=== PATIENT | female | born 1995 | race American Indian/Alaskan Native ===

== ENCOUNTER 2017-08-15 20:08 | Emergency (ER) | payer OTHER, BC ==
[2017-08-15 21:17] VITALS: BP 124/72
[2017-08-15] MEDS ORDERED: ROBAXIN PO ONE (23:42)
[2017-08-15] MEDS ORDERED: MOTRIN PO ONE (23:42)
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
== END 2017-08-16 00:40 | disposition home or self-care (01) ==
LOC: ED 20:08
DX: S16.1XXA Strain of muscle, fascia and tendon at neck level, initial encounter (principal); Z87.891 Personal history of nicotine dependence; V89.2XXA Person injured in unspecified motor-vehicle accident, traffic, initial encounter; Y93.89 Activity, other specified; Y92.89 Other specified places as the place of occurrence of the external cause; Y99.8 Other external cause status
CPT/HCPCS: 99282

== ENCOUNTER 2018-12-01 19:26 | Inpatient (IN) | payer BC, OTHER ==
[2018-12-01] MEDS ORDERED: MINERAL OIL PO PRN (21:20)
[2018-12-01] MEDS ORDERED: CERVIDIL VG ONE (21:20)
[2018-12-01] MEDS ORDERED: STADOL IV PRN (21:20)
[2018-12-01] MEDS ORDERED: LACTATED RINGERS 1,000 ML IV SCH (22:00)
[2018-12-01] MEDS ORDERED: PITOCin/NS 20 UNIT/1000ML DRIP 20 UNITS/1,000 ML BAG IV SCH (22:00)
--- NOTE | 2018-12-01 22:33 | Ultrasound Report ---
ULTRASOUND OBSTETRIC Indication: post date 40.4wks; BRIAN Findings: There is a single intrauterine . Amniotic fluid index measures 5.9 cm. The heart rate was 1 46 bpm. Signer Name: Beny San MD Signed: 12/01/2018 9:28 PM Workstation Name: [id number]
[2018-12-01 22:50] LABS: Hematocrit 32.7 % (30.3-42.9); Hemoglobin 10.7 gm/dl (10.1-14.3); Mean Corpuscular HGB Conc 33 % (30-34); Mean Corpuscular Volume 75 fl (79-97); Platelet Count 223 K/mm3 (140-440); Red Blood Count 4.37 M/mm3 (3.65-5.03); Red Cell Distribution Width 16.5 % (13.2-15.2)
--- NOTE | 2018-12-01 22:50 | Ultrasound Report ---
US OB BPP wo non-stress INDICATION: post date 40.4wks; BPP. COMPARISON: None available. FINDINGS: The biophysical profile is normal and measures 8 out of 8. heart rate measures 146 bpm. Signer Name: Beny San MD Signed: 12/01/2018 9:46 PM Workstation Name: [id number]
[2018-12-02] MEDS ORDERED: AMBIEN PO PRN (00:21)
[2018-12-02] MEDS ORDERED: ZOFRAN ONE (09:05)
[2018-12-02] MEDS ORDERED: ZOFRAN IV ONE (09:05)
[2018-12-02] MEDS: SUBLIMAZE IV PRN ×2 (09:24→13:02)
--- NOTE | 2018-12-02 10:28 | History and Physical Report ---
History of Present Illness Date of examination: 12/02/18 Date of admission: 12/01/18 21:31 Chief complaint: Presents for postdates induction of labor History of present illness: Early entry to care, co-managed with [facility] due to maternal obesity and size greater than dates. course complicated by mild anemia. Past History Past Medical History: no pertinent history Past Surgical History: no surgical history Family/Genetic History: none Social history: no significant social history, single - Obstetrical History Expected Date of Delivery: 11/27/18 Actual Gestation: 40 Week(s) 5 Day(s) : 1 Medications and Allergies Allergies Allergy/AdvReac Type Severity Reaction Status Date / Time No Known Allergies Allergy Verified 08/15/17 23:44 Home Medications Medication Instructions Recorded Confirmed Last Taken Type Ferrous Sulfate [Feosol 325 MG tab] 1 tab PO QDAY 12/01/18 12/01/18 2 Weeks Ago History ~11/17/18 Vit-Fe Fumar-FA [ 1 tab PO QDAY 12/01/18 12/01/18 1 Week Ago History Vitamin] ~11/24/18 Active Meds: Active Medications Butorphanol Tartrate (Stadol) 1 mg IV Q2H PRN PRN Reason: Pain, Moderate (4-6) Fentanyl (Sublimaze) 100 mcg IV Q2H PRN PRN Reason: Labor Pain Last Admin: 12/02/18 09:24 Dose: 100 mcg Documented by: Oxytocin/Sodium Chloride (Pitocin/Ns 20 Unit/1000ml Drip) 20 units in 1,000 mls @ 125 mls/hr IV DIRECT JEN Lactated Ringer's (Lactated Ringers) 1,000 mls @ 125 mls/hr IV DIRECT JEN Last Infusion: 12/02/18 07:30 Dose: 125 mls/hr Documented by: Mineral Oil (Mineral Oil) 30 ml PO QHS PRN PRN Reason: Constipation Zolpidem Tartrate (Ambien) 5 mg PO QHS PRN PRN Reason: Sleep Last Admin: 12/02/18 01:36 Dose: 5 mg Documented by: Review of Systems All systems: negative - Vital Signs Vital signs: Vital Signs Pulse BP 90 125/72 12/01/18 20:32 12/01/18 20:32 Temp Pulse Resp BP Pulse Ox 98.3 F 77 16 130/85 100 12/02/18 07:30 12/02/18 09:15 12/02/18 07:30 12/02/18 09:15 12/02/18 04:00 - Physical Exam Breasts: Positive: normal Cardiovascular: Regular rate Lungs: Positive: Clear to auscultation, Normal air movement Abdomen: Positive: normal appearance, soft, normal bowel sounds Genitourinary (Female): Positive: normal external genitalia, normal perenium Vagina: Positive: normal moisture Uterus: Positive: enlarged - Obstetrical FHR: category 1 Uterine Contraction Monitor Mode: External Cervical Dilatation: 1 (Vtx, Intact) Cervical Effacement Percentage: 70 station: -3 Uterine Contraction Pattern: Irregular Uterine Tone Measurement Phase: Resting Uterine Contraction Intensity: Mild Results Result Diagrams: 12/01/18 22:24 Abnormal lab results 12/01/18 Range/Units 22:24 MCV 75 L (79-97) fl MCH 25 L (28-32) pg RDW 16.5 H (13.2-15.2) % All other labs normal. Assessment and Plan A: IUP @ 40 5/7 Weeks Category I Tracing Oligo GBS Negative P: Admit to L&D per routine orders Cook's Cervical Ripening Balloon Placed Low- Dose Pitocin
[2018-12-02] MEDS ORDERED: PITOCin/NS 30 UNIT/500ML 30 UNITS/500 ML BAG IV SCH (11:00)
[2018-12-02] MEDS ORDERED: PEPCID IV PRN (11:39)
--- NOTE | 2018-12-02 12:32 | Progress Note ---
Assessment and Plan A: IUP @ 40 5/7 Weeks Category I Tracing Oligo GBS Negative P: Cook's Balloon removed AROM Continue Pitocin Augmentation Subjective - Subjective Date of service: 12/02/18 Interval history: Early entry to care, co-managed with [facility] due to maternal obesity and size greater than dates. course complicated by mild anemia. Patient reports: movement normal, contractions Objective - Vital Signs Vital Signs: Vital Signs - 12hr 12/02/18 12/02/18 12/02/18 01:08 02:09 03:09 Temperature Pulse Rate 73 91 H 79 Respiratory Rate Blood Pressure 127/76 143/85 118/67 Blood Pressure [Right] O2 Sat by Pulse Oximetry 12/02/18 12/02/18 12/02/18 04:00 04:09 05:12 Temperature 98 F Pulse Rate 82 82 80 Respiratory 18 Rate Blood Pressure 126/85 133/85 Blood Pressure 125/85 [Right] O2 Sat by Pulse 100 Oximetry 12/02/18 12/02/18 12/02/18 06:11 07:08 07:30 Temperature 98.3 F Pulse Rate 79 85 Respiratory 16 Rate Blood Pressure 118/78 137/94 Blood Pressure [Right] O2 Sat by Pulse Oximetry 12/02/18 12/02/18 12/02/18 07:36 07:49 08:10 Temperature Pulse Rate 83 85 81 Respiratory Rate Blood Pressure 140/93 144/89 129/72 Blood Pressure [Right] O2 Sat by Pulse Oximetry 12/02/18 12/02/18 12/02/18 09:15 10:23 11:08 Temperature Pulse Rate 77 77 Respiratory Rate Blood Pressure 130/85 121/94 137/85 Blood Pressure [Right] O2 Sat by Pulse Oximetry 12/02/18 12/02/18 12/02/18 11:11 11:16 11:17 Temperature 99.1 F Pulse Rate 86 79 Respiratory 16 Rate Blood Pressure Blood Pressure [Right] O2 Sat by Pulse 100 96 Oximetry 12/02/18 12/02/18 12/02/18 11:21 11:24 11:26 Temperature Pulse Rate 82 87 90 Respiratory Rate Blood Pressure Blood Pressure [Right] O2 Sat by Pulse 98 94 98 Oximetry 12/02/18 12/02/18 12/02/18 11:31 11:36 11:37 Temperature Pulse Rate 102 H 94 H 79 Respiratory Rate Blood Pressure Blood Pressure [Right] O2 Sat by Pulse 99 96 94 Oximetry 12/02/18 12/02/18 12/02/18 11:41 11:46 11:51 Temperature Pulse Rate 90 87 80 Respiratory Rate Blood Pressure Blood Pressure [Right] O2 Sat by Pulse 96 96 95 Oximetry 12/02/18 12/02/18 12/02/18 11:56 12:01 12:06 Temperature Pulse Rate 81 97 H 78 Respiratory Rate Blood Pressure Blood Pressure [Right] O2 Sat by Pulse 95 98 97 Oximetry 12/02/18 12/02/18 12/02/18 12:08 12:11 12:12 Temperature Pulse Rate 72 101 H 79 Respiratory Rate Blood Pressure 137/89 Blood Pressure [Right] O2 Sat by Pulse 97 94 Oximetry 12/02/18 12/02/18 12/02/18 12:16 12:21 12:26 Temperature Pulse Rate 88 92 H 92 H Respiratory Rate Blood Pressure Blood Pressure [Right] O2 Sat by Pulse 98 98 96 Oximetry - Exam Breasts: normal Cardiovascular: Regular rate Lungs: Clear to auscultation, Normal air movement Abdomen: Present: normal appearance, soft, normal bowel sounds Uterus: Present: normal, firm, fundal height above umbilicus FHR: category 1 Uterine Contraction Monitor Mode: External Cervical Dilatation: 5 (AROM of a small amount of clear fluid at 1225) Cervical Effacement Percentage: 70 station: -2 Uterine Contraction Pattern: Irregular Uterine Tone Measurement Phase: Resting Uterine Contraction Intensity: Moderate Extremities: normal - Labs Labs: Abnormal Labs 12/01/18 22:24 MCV 75 L MCH 25 L RDW 16.5 H Laboratory Results - last 24 hr 12/01/18 12/01/18 12/01/18 22:24 22:24 22:29 WBC 7.1 RBC 4.37 Hgb 10.7 Hct 32.7 MCV 75 L MCH 25 L MCHC 33 RDW 16.5 H Plt Count 223 RPR Nonreactive Blood Type A POSITIVE Antibody Screen Negative
[2018-12-02] MEDS ORDERED: NARCAN 2 MG/2 ML IV PRN (17:03)
--- NOTE | 2018-12-02 17:04 | Anesthesia Consultation ---
Anesthesia Consult and Med Hx Date of service: 12/02/18 - Airway Anesthetic Teeth Evaluation: Good ROM Head & Neck: Adequate Mental/Hyoid Distance: Adequate Mallampati Class: Class I Intubation Access Assessment: Good - Pulmonary Exam CTA: Yes - Cardiac Exam Cardiac Exam: RRR - Pre-Operative Health Status ASA Pre-Surgery Classification: ASA2 Proposed Anesthetic Plan: Epidural - Pulmonary Hx Asthma: No COPD: No Hx Pneumonia: No - Cardiovascular System Hx Hypertension: No - Central Nervous System Hx Seizures: No Hx Psychiatric Problems: No - Endocrine Hx Renal Disease: No Hx End Stage Renal Disease: No Hx Hypothyroidism: No Hx Hyperthyroidism: No - Hematic Hx Anemia: Yes Hx Sickle Cell Disease: No (sickle cell trait) - Other Systems Hx Alcohol Use: No
--- NOTE | 2018-12-02 17:05 | Anesthesia Day of Surgery ---
Anesthesia Day of Surgery - Day of Surgery Patient Examined: Yes Patient H&P Reviewed: Yes Patient is NPO: No
[2018-12-02] MEDS ORDERED: fentaNYL-BUPIV 2 MCG/ML-0.125% 200 MCG/100 ML BAG EPIDURAL SCH (18:00)
--- NOTE | 2018-12-02 18:41 | Progress Note ---
Assessment and Plan A: IUP @ 40 5/7 Weeks Category II Tracing Oligo GBS Negative P: Pitocin Discontinued x 40 mins Internals X [address] Garcia due to Category II Tracing Subjective - Subjective Date of service: 12/02/18 Interval history: Early entry to care, co-managed with [facility] due to maternal obesity and size greater than dates. course complicated by mild anemia. Patient reports: movement normal, other (Resting well under epidural anesthesia) Objective - Vital Signs Vital Signs: Vital Signs - 12hr 12/02/18 12/02/18 12/02/18 07:08 07:30 07:36 Temperature 98.3 F Pulse Rate 85 83 Respiratory 16 Rate Blood Pressure 137/94 140/93 O2 Sat by Pulse Oximetry 12/02/18 12/02/18 12/02/18 07:49 08:10 09:15 Temperature Pulse Rate 85 81 77 Respiratory Rate Blood Pressure 144/89 129/72 130/85 O2 Sat by Pulse Oximetry 12/02/18 12/02/18 12/02/18 10:23 11:08 11:11 Temperature Pulse Rate 77 86 Respiratory Rate Blood Pressure 121/94 137/85 O2 Sat by Pulse 100 Oximetry 12/02/18 12/02/18 12/02/18 11:16 11:17 11:21 Temperature 99.1 F Pulse Rate 79 82 Respiratory 16 Rate Blood Pressure O2 Sat by Pulse 96 98 Oximetry 12/02/18 12/02/18 12/02/18 11:24 11:26 11:31 Temperature Pulse Rate 87 90 102 H Respiratory Rate Blood Pressure O2 Sat by Pulse 94 98 99 Oximetry 12/02/18 12/02/18 12/02/18 11:36 11:37 11:41 Temperature Pulse Rate 94 H 79 90 Respiratory Rate Blood Pressure O2 Sat by Pulse 96 94 96 Oximetry 12/02/18 12/02/18 12/02/18 11:46 11:51 11:56 Temperature Pulse Rate 87 80 81 Respiratory Rate Blood Pressure O2 Sat by Pulse 96 95 95 Oximetry 12/02/18 12/02/18 12/02/18 12:01 12:06 12:08 Temperature Pulse Rate 97 H 78 72 Respiratory Rate Blood Pressure 137/89 O2 Sat by Pulse 98 97 Oximetry 12/02/18 12/02/18 12/02/18 12:11 12:12 12:16 Temperature Pulse Rate 101 H 79 88 Respiratory Rate Blood Pressure O2 Sat by Pulse 97 94 98 Oximetry 12/02/18 12/02/18 12/02/18 12:21 12:26 12:29 Temperature Pulse Rate 92 H 92 H 74 Respiratory Rate Blood Pressure O2 Sat by Pulse 98 96 94 Oximetry 12/02/18 12/02/18 12/02/18 12:31 12:36 12:41 Temperature Pulse Rate 80 97 H 104 H Respiratory Rate Blood Pressure O2 Sat by Pulse 95 96 97 Oximetry 12/02/18 12/02/18 12/02/18 12:46 12:51 12:56 Temperature Pulse Rate 80 85 74 Respiratory Rate Blood Pressure O2 Sat by Pulse 96 98 97 Oximetry 12/02/18 12/02/18 12/02/18 13:01 13:06 13:10 Temperature Pulse Rate 77 82 74 Respiratory Rate Blood Pressure 136/84 O2 Sat by Pulse 95 96 Oximetry 12/02/18 12/02/18 12/02/18 13:11 13:16 13:21 Temperature Pulse Rate 89 100 H 73 Respiratory Rate Blood Pressure O2 Sat by Pulse 98 98 97 Oximetry 12/02/18 12/02/18 12/02/18 13:26 13:31 13:36 Temperature Pulse Rate 75 95 H 71 Respiratory Rate Blood Pressure O2 Sat by Pulse 98 98 96 Oximetry 12/02/18 12/02/18 12/02/18 13:41 13:52 13:57 Temperature Pulse Rate 75 90 71 Respiratory Rate Blood Pressure O2 Sat by Pulse 97 99 98 Oximetry 12/02/18 12/02/18 12/02/18 14:02 14:07 14:09 Temperature Pulse Rate 68 87 71 Respiratory Rate Blood Pressure 139/88 O2 Sat by Pulse 97 97 Oximetry 12/02/18 12/02/18 12/02/18 14:12 14:17 14:22 Temperature Pulse Rate 67 75 80 Respiratory Rate Blood Pressure O2 Sat by Pulse 98 98 98 Oximetry 12/02/18 12/02/18 12/02/18 14:27 14:31 14:32 Temperature Pulse Rate 68 68 99 H Respiratory Rate Blood Pressure O2 Sat by Pulse 97 94 96 Oximetry 12/02/18 12/02/18 12/02/18 14:37 14:42 14:47 Temperature Pulse Rate 72 101 H 71 Respiratory Rate Blood Pressure O2 Sat by Pulse 98 98 97 Oximetry 12/02/18 12/02/18 12/02/18 14:52 14:54 14:57 Temperature Pulse Rate 79 70 69 Respiratory Rate Blood Pressure O2 Sat by Pulse 100 94 99 Oximetry 12/02/18 12/02/18 12/02/18 15:02 15:07 15:09 Temperature Pulse Rate 82 78 72 Respiratory Rate Blood Pressure 147/96 O2 Sat by Pulse 99 99 Oximetry 12/02/18 12/02/18 12/02/18 15:12 15:17 15:22 Temperature Pulse Rate 79 100 H 92 H Respiratory Rate Blood Pressure O2 Sat by Pulse 98 100 100 Oximetry 12/02/18 12/02/18 12/02/18 15:27 15:32 15:37 Temperature Pulse Rate 72 76 116 H Respiratory Rate Blood Pressure O2 Sat by Pulse 100 99 100 Oximetry 12/02/18 12/02/18 12/02/18 15:49 15:54 15:59 Temperature Pulse Rate 91 H 98 H 81 Respiratory Rate Blood Pressure 148/98 O2 Sat by Pulse 100 99 100 Oximetry 12/02/18 12/02/18 12/02/18 16:00 16:04 16:06 Temperature 97.8 F Pulse Rate 83 101 H Respiratory 16 Rate Blood Pressure O2 Sat by Pulse 100 92 Oximetry 12/02/18 12/02/18 12/02/18 16:08 16:09 16:14 Temperature Pulse Rate 80 77 69 Respiratory Rate Blood Pressure 137/92 O2 Sat by Pulse 100 98 Oximetry 12/02/18 12/02/18 12/02/18 16:19 16:24 16:29 Temperature Pulse Rate 84 98 H 69 Respiratory Rate Blood Pressure O2 Sat by Pulse 100 99 100 Oximetry 12/02/18 12/02/18 12/02/18 16:34 16:39 16:44 Temperature Pulse Rate 86 75 92 H Respiratory Rate Blood Pressure O2 Sat by Pulse 97 98 98 Oximetry 12/02/18 12/02/18 12/02/18 16:49 16:54 16:59 Temperature Pulse Rate 82 73 93 H Respiratory Rate Blood Pressure O2 Sat by Pulse 100 100 99 Oximetry 12/02/18 12/02/18 12/02/18 17:04 17:08 17:09 Temperature Pulse Rate 80 51 L 91 H Respiratory Rate Blood Pressure O2 Sat by Pulse 100 93 98 Oximetry 12/02/18 12/02/18 12/02/18 17:14 17:19 17:21 Temperature Pulse Rate 94 H 84 90 Respiratory Rate Blood Pressure 137/80 O2 Sat by Pulse 94 99 Oximetry 12/02/18 12/02/18 12/02/18 17:23 17:24 17:25 Temperature Pulse Rate 100 H 80 94 H Respiratory Rate Blood Pressure 134/83 139/81 O2 Sat by Pulse 99 Oximetry 12/02/18 12/02/18 12/02/18 17:27 17:29 17:31 Temperature Pulse Rate 88 86 94 H Respiratory Rate Blood Pressure 135/80 132/75 133/85 O2 Sat by Pulse 99 Oximetry 12/02/18 12/02/18 12/02/18 17:33 17:34 17:35 Temperature Pulse Rate 77 78 95 H Respiratory Rate Blood Pressure 137/85 124/71 O2 Sat by Pulse 100 Oximetry 12/02/18 12/02/18 12/02/18 17:37 17:39 17:44 Temperature Pulse Rate 77 73 82 Respiratory Rate Blood Pressure 109/55 O2 Sat by Pulse 100 100 Oximetry 12/02/18 12/02/18 12/02/18 17:49 17:53 17:54 Temperature Pulse Rate 74 81 69 Respiratory Rate Blood Pressure 112/61 O2 Sat by Pulse 100 100 Oximetry 12/02/18 12/02/18 12/02/18 17:59 18:03 18:04 Temperature Pulse Rate 92 H 76 81 Respiratory Rate Blood Pressure 108/57 O2 Sat by Pulse 100 100 Oximetry 12/02/18 12/02/18 12/02/18 18:08 18:09 18:14 Temperature Pulse Rate 71 79 77 Respiratory Rate Blood Pressure 136/86 O2 Sat by Pulse 100 100 Oximetry 12/02/18 12/02/18 12/02/18 18:19 18:23 18:24 Temperature Pulse Rate 79 78 78 Respiratory Rate Blood Pressure 149/93 O2 Sat by Pulse 100 100 Oximetry 12/02/18 12/02/18 18:29 18:34 Temperature Pulse Rate 81 83 Respiratory Rate Blood Pressure O2 Sat by Pulse 100 100 Oximetry - Exam Breasts: normal Cardiovascular: Regular rate Lungs: Clear to auscultation, Normal air movement Abdomen: Present: normal appearance, soft, normal bowel sounds Uterus: Present: normal, firm, fundal height above umbilicus FHR: category 2 FHR comments: FHR: 126, moderate varability, -accels, +repetitive early decels Cervical Dilatation: 7 Cervical Effacement Percentage: 70 station: -2 Uterine Contraction Frequency (min): 1-2 Uterine Contraction Pattern: Regular Uterine Tone Measurement Phase: Resting Uterine Contraction Intensity: Moderate Extremities: normal - Labs Labs: Abnormal Labs 12/01/18 22:24 MCV 75 L MCH 25 L RDW 16.5 H Laboratory Results - last 24 hr 12/01/18 12/01/18 12/01/18 22:24 22:24 22:29 WBC 7.1 RBC 4.37 Hgb 10.7 Hct 32.7 MCV 75 L MCH 25 L MCHC 33 RDW 16.5 H Plt Count 223 RPR Nonreactive Blood Type A POSITIVE Antibody Screen Negative
[2018-12-02] MEDS ORDERED: NACL 0.9% 1000 ML 1,000 ML VG SCH (19:00)
[2018-12-02] MEDS ORDERED: BICITRA PO ONE (19:08)
[2018-12-02] MEDS ORDERED: PEPCID IV ONE (19:08)
[2018-12-02] MEDS ORDERED: REGLAN IV ONE (19:08)
[2018-12-02] MEDS ORDERED: REGLAN ONE (19:12)
[2018-12-02] MEDS ORDERED: BICITRA ONE (19:12)
[2018-12-02] MEDS ORDERED: ANCEF/STERILE WATER 2 GM/20 ML IV ONE (19:15)
[2018-12-02] MEDS ORDERED: WATER FOR IRRIG STERILE IR ONE (19:20)
[2018-12-02] MEDS ORDERED: NACL 0.9% IR ONE (19:20)
[2018-12-02] MEDS ORDERED: ANCEF/STERILE WATER 2 GM/20 ML 2 GM/20 ML SYRINGE IV NR (20:00)
[2018-12-02] MEDS ORDERED: PITOCin/NS 20 UNIT/1000ML DRIP 20 UNITS/1,000 ML BAG IV SCH ×2 (20:00→21:00)
[2018-12-02] MEDS ORDERED: LACTATED RINGERS 1,000 ML IV SCH (20:00)
--- NOTE | 2018-12-02 20:01 | Operative Report ---
Operative Report Operative Report: Date of procedure: 12/02/2018 Pre-operative diagnosis: 1. Intrauterine brings a 40-5/7 weeks in labor 2. Oligohydramnios 3. Non-reassuring surveillance Post-operative diagnosis: Same Procedure name(s): Primary low transverse section Surgeon: Delmar Fenton MD Decorating Equipment Setter: None Anesthesia: Epidural anesthesia by Gaudencio Frederick CRNA EBL: 500 mL Findings: A 4090 g male Apgars 8 at 1 minute and 9 at 5 minutes. Clear amniotic fluid. Nuchal cord 1. Normal uterus. Normal tubes and ovaries bilaterally. Procedure: After the patient was prepped and draped in usual sterile fashion, and after satisfactory level of epidural anesthesia was obtained, the skin knife was used to make a transverse skin incision. The incision was excised down to layer of the fascia, which was nicked in the midline and extended laterally using the Bovie cautery. The rectus muscles were dissected off the rectus fascia both superiorly and inferiorly. The rectus bellies in the midline, and the peritoneum was entered under direct visualization. The peritoneal incision was extended superiorly and inferiorly. A bladder flap was created and the bladder blade was then placed. The uterus was scored in a curvilinear linear fashion, entered in the midline revealing clear amniotic fluid. The infant's head was delivered onto the surgical field, nuchal cord 1 reduced and the oropharynx and nasopharynx were bulb suctioned. The rest of the 's body was delivered, cord was doubly clamped and cut and the was handed to the waiting respiratory team. The placenta was manually removed from the uterus, and the uterus removed from its normal anatomical position. After gentle uterine lavage, the incision was inspected and found to be without extensions. It was then closed in 2 layers using 0 Vicryl suture in a running interlocking fashion, the second layer imbricating the first. After good hemostasis was achieved, copious amounts or irrigation was performed, and the gutters were suctioned free of blood and blood clots. Tisseel sealant was sprayed across the uterine incision. The uterus was then returned to its normal anatomical position, and after excellent hemostasis assured, the peritoneum was re-approximated using 3-0 Vicryl suture in a running interlocking fashion, and then the rectus muscles were re-approximated using 3-0 Vicryl suture in a [id number] configuration. The fascia was then re-approximated using 0 Vicryl suture in running interlocking fashion. The subcutaneous layer was made hemostatic using Bovie cautery, the Tisseel sealant was sprayed across the fascial incision and the skin edges re-approximated using 4-0 Vicryl suture in a sub-cuticular fashion. Patient tolerated the procedure well was transported to recovery in stable condition.
[2018-12-02] MEDS ORDERED: TYLENOL PO PRN (20:04)
[2018-12-02] MEDS ORDERED: LANSINOH TP PRN (20:04)
[2018-12-02] MEDS ORDERED: IBUPROFEN PO PRN (20:04)
[2018-12-02] MEDS ORDERED: MYLICON PO PRN (20:04)
[2018-12-02] MEDS ORDERED: NARCAN 0.4 MG/1 ML IV PRN ×2 (20:04→20:25)
[2018-12-02] MEDS ORDERED: TUCKS PAD TP PRN (20:04)
[2018-12-02] MEDS ORDERED: NORCO 5/325 PO PRN (20:04)
[2018-12-02] MEDS ORDERED: SODIUM BICARBONATE IV ONE (20:21)
[2018-12-02] MEDS ORDERED: XYLOCAINE MPF 2% ONE (20:21)
[2018-12-02] MEDS ORDERED: DILAUDID IV PRN (20:25)
[2018-12-02] MEDS ORDERED: ZOFRAN IV PRN (20:25)
[2018-12-02] MEDS ORDERED: PHENERGAN PR PRN (20:25)
[2018-12-02] MEDS ORDERED: PHENERGAN PO PRN (20:25)
[2018-12-02] MEDS ORDERED: NUBAIN IV PRN (20:26)
[2018-12-02] MEDS ORDERED: PITOCin/NS 20 UNIT/1000ML DRIP 20,000 MILLIUNITS/1,000 ML BAG IV ONE (20:30)
[2018-12-02] MEDS ORDERED: D5LR 1,000 ML IV SCH (21:00)
[2018-12-02] MEDS: DILAUDID IV PRN ×2 (21:00→21:08)
[2018-12-02] MEDS ORDERED: SODIUM CHLORIDE FLUSH SYRINGE 10 ML IV NR ×2 (21:00)
[2018-12-02] MEDS: TORADOL IV PRN (21:00)
[2018-12-02] MEDS ORDERED: SENOKOT PO PRN (22:00)
[2018-12-03] MEDS: DILAUDID IV PRN
[2018-12-03] MEDS: ANCEF/NS 1 GM/50 ML 1 GM/50 ML BAG IV SCH ×2 (03:22→13:44)
[2018-12-03] MEDS ORDERED: BOOSTRIX IM ONE (06:00)
[2018-12-03] MEDS: TORADOL IV PRN ×3 (07:10→19:55)
[2018-12-03 09:26] LABS: Hematocrit 27.5 % (30.3-42.9); Hemoglobin 9.3 gm/dl (10.1-14.3)
[2018-12-03] MEDS ORDERED: M-M-R II VACCINE SUB-Q ONE (10:00)
--- NOTE | 2018-12-03 10:07 | Progress Note ---
Assessment and Plan A: /postop day 1 S/P primary low transverse section. Anemia secondary to and blood loss. P: Ambulate today. Advance diet as tolerated. Remove Yee. Oral iron supplementation. Subjective - Subjective Date of service: 12/03/18 Principal diagnosis: /postop day 1 S/P primary low transverse section Interval history: /postop day 1 S/P primary low transverse section. Doing well. Patient still has Yee. Has not been up to ambulate yet. No flatus yet. Has been drinking water without nausea or vomiting. Reports small amount of lochia. Patient denies headache, cough, shortness of breath, chest pain, dizziness, leg pain, or heavy vaginal bleeding. Patient reports: appetite normal, pain well controlled, no flatus, no nauseated [place]: doing well Objective - Vital Signs Latest vital signs: Vital Signs Temp Pulse Resp BP Pulse Ox 12/03/18 08:16 98.1 F 80 16 119/71 94 12/03/18 07:10 18 12/03/18 05:26 18 12/03/18 02:55 98.2 F 75 20 128/86 93 12/03/18 00:00 18 12/02/18 23:17 114 H 100 12/02/18 21:58 98.2 F 76 20 129/80 98 12/02/18 20:50 97.7 F 12/02/18 20:15 97.8 F 12/02/18 19:02 91 H 100 12/02/18 18:57 81 100 12/02/18 18:53 74 114/61 12/02/18 18:52 77 100 12/02/18 18:39 98 H 144/91 100 12/02/18 18:34 83 100 12/02/18 18:29 81 100 12/02/18 18:24 78 100 12/02/18 18:23 78 149/93 12/02/18 18:19 79 100 12/02/18 18:14 77 100 12/02/18 18:09 79 100 12/02/18 18:08 71 136/86 12/02/18 18:04 81 100 12/02/18 18:03 76 108/57 12/02/18 17:59 92 H 100 12/02/18 17:54 69 100 12/02/18 17:53 81 112/61 07/03/19 17:49 74 100 12/02/18 17:44 82 100 12/02/18 17:39 73 100 12/02/18 17:37 77 109/55 12/02/18 17:35 95 H 124/71 12/02/18 17:34 78 100 12/02/18 17:33 77 137/85 12/02/18 17:31 94 H 133/85 12/02/18 17:29 86 132/75 99 12/02/18 17:27 88 135/80 12/02/18 17:25 94 H 139/81 12/02/18 17:24 80 99 12/02/18 17:23 100 H 134/83 12/02/18 17:21 90 137/80 12/02/18 17:19 84 99 12/02/18 17:14 94 H 94 12/02/18 17:09 91 H 98 12/02/18 17:08 51 L 93 12/02/18 17:04 80 100 12/02/18 16:59 93 H 99 12/02/18 16:54 73 100 12/02/18 16:49 82 100 12/02/18 16:44 92 H 98 12/02/18 16:39 75 98 12/02/18 16:34 86 97 12/02/18 16:29 69 100 12/02/18 16:24 98 H 99 12/02/18 16:19 84 100 12/02/18 16:14 69 98 12/02/18 16:09 77 100 12/02/18 16:08 80 137/92 12/02/18 16:06 101 H 92 12/02/18 16:04 83 100 12/02/18 16:00 97.8 F 16 12/02/18 15:59 81 100 12/02/18 15:54 98 H 148/98 99 12/02/18 15:49 91 H 100 12/02/18 15:37 116 H 100 12/02/18 15:32 76 99 12/02/18 15:27 72 100 12/02/18 15:22 92 H 100 12/02/18 15:17 100 H 100 12/02/18 15:12 79 98 12/02/18 15:09 72 147/96 12/02/18 15:07 78 99 12/02/18 15:02 82 99 12/02/18 14:57 69 99 12/02/18 14:54 70 94 12/02/18 14:52 79 100 12/02/18 14:47 71 97 12/02/18 14:42 101 H 98 12/02/18 14:37 72 98 12/02/18 14:32 99 H 96 12/02/18 14:31 68 94 12/02/18 14:27 68 97 12/02/18 14:22 80 98 12/02/18 14:17 75 98 12/02/18 14:12 67 98 12/02/18 14:09 71 139/88 12/02/18 14:07 87 97 12/02/18 14:02 68 97 12/02/18 13:57 71 98 12/02/18 13:52 90 99 12/02/18 13:41 75 97 12/02/18 13:36 71 96 12/02/18 13:31 95 H 98 12/02/18 13:26 75 98 12/02/18 13:21 73 97 12/02/18 13:16 100 H 98 12/02/18 13:11 89 98 12/02/18 13:10 74 136/84 12/02/18 13:06 82 96 12/02/18 13:01 77 95 12/02/18 12:56 74 97 12/02/18 12:51 85 98 12/02/18 12:46 80 96 12/02/18 12:41 104 H 97 12/02/18 12:36 97 H 96 12/02/18 12:31 80 95 12/02/18 12:29 74 94 12/02/18 12:26 92 H 96 12/02/18 12:21 92 H 98 12/02/18 12:16 88 98 12/02/18 12:12 79 94 12/02/18 12:11 101 H 97 12/02/18 12:08 72 137/89 12/02/18 12:06 78 97 12/02/18 12:01 97 H 98 12/02/18 11:56 81 95 12/02/18 11:51 80 95 12/02/18 11:46 87 96 12/02/18 11:41 90 96 12/02/18 11:37 79 94 12/02/18 11:36 94 H 96 12/02/18 11:31 102 H 99 12/02/18 11:26 90 98 12/02/18 11:24 87 94 12/02/18 11:21 82 98 12/02/18 11:17 99.1 F 16 12/02/18 11:16 79 96 12/02/18 11:11 86 100 12/02/18 11:08 77 137/85 12/02/18 10:23 121/94 Intake and Output 12/02/18 12/03/18 12/03/18 23:59 07:59 15:59 Intake Total 240 0 Output Total 1100 600 Balance -1100 -360 0 Intake: Oral 240 0 Output: Urine 1100 600 Indwelling Catheter 600 600 Uretheral (Yee) 500 Other: Total, Intake Amount 240 0 Total, Output Amount 600 600 Estimated Blood Loss 500 - Exam Cardiovascular: Present: Regular rate, Normal S1, Normal S2 Lungs: Present: Clear to auscultation Abdomen: Present: normal appearance, soft, normal bowel sounds. Absent: distention, tenderness, guarding, rigidity Uterus: Present: normal, firm, fundal height below umbilicus. Absent: bogginess, tenderness Extremities: Present: normal. Absent: tenderness, edema Incision: Present: normal, dry, intact, dressed - Labs Labs: Abnormal lab results 12/03/18 Range/Units 08:42 Hgb 9.3 L (10.1-14.3) gm/dl Hct 27.5 L (30.3-42.9) %
[2018-12-03] MEDS: PRENATAL VITAMIN PO SCH (10:48)
[2018-12-03] MEDS: FEOSOL PO SCH (10:48)
[2018-12-03] MEDS: TORADOL IV SCH (20:03)
[2018-12-03] MEDS: TYLENOL PO SCH (21:15)
[2018-12-04] MEDS: TORADOL IV SCH ×4 (02:03→18:00)
[2018-12-04] MEDS: TYLENOL PO SCH ×3 (04:37→15:00)
--- NOTE | 2018-12-04 09:34 | Progress Note ---
Assessment and Plan - Patient Problems (1) S/P primary low transverse Current Visit: Yes Status: Acute Plan to address problem: POD 2 - stable Continue routine postop orders Ambulation, abdominal binder encouraged, as tolerated Anticipate discharge in 24 hours (2) Anemia due to blood loss, acute Current Visit: Yes Status: Acute Plan to address problem: Asymptomatic Continue iron therapy (ferrous sulfate 325mg PO daily) Subjective - Subjective Date of service: 12/04/18 Principal diagnosis: POD #2; s/p Primary LTCS Interval history: see H&P, OB Progress Notes, Operative Report and PP/RESPITE COORDINATOR Progress Note Patient reports: appetite normal, voiding normally, pain well controlled, flatus, ambulating normally, no dizzy ambulation, no bowel movement : doing well, other (breast and bottle feeding) Objective - Vital Signs Latest vital signs: Vital Signs Temp Pulse Resp BP Pulse Ox 12/04/18 07:45 99.2 F 86 20 128/79 92 12/04/18 00:00 98.4 F 82 20 130/84 96 12/03/18 20:21 98.2 F 84 20 121/74 94 12/03/18 15:52 97.9 F 83 18 116/68 94 12/03/18 12:06 97.5 F L 82 18 123/87 95 Intake and Output 12/03/18 12/04/18 12/04/18 23:59 07:59 15:59 Intake Total 780 480 Balance 780 480 Intake: Oral 780 480 Other: Total, Intake Amount 780 480 # Voids Indwelling Catheter 1 1 # Bowel Movements 0 - Exam Cardiovascular: Present: Regular rate Lungs: Present: Clear to auscultation Abdomen: Present: normal appearance, soft Vulva: both: normal Uterus: Present: normal, firm, fundal height at umbilicus Extremities: Present: normal Incision: Present: normal, dry, intact, dressed Comments: scant lochia - Labs Labs: Abnormal lab results 12/03/18 Range/Units 08:42 Hgb 9.3 L (10.1-14.3) gm/dl Hct 27.5 L (30.3-42.9) %
[2018-12-04] MEDS: MILK OF MAGNESIA PO PRN (10:00)
[2018-12-04] MEDS: PRENATAL VITAMIN PO SCH (10:01)
[2018-12-04] MEDS: FEOSOL PO SCH (10:01)
[2018-12-04] MEDS: PERCOCET 5/325 PO PRN ×2 (10:17→17:48)
[2018-12-04] MEDS: SENOKOT PO SCH ×2 (10:18→22:19)
[2018-12-05] MEDS: PERCOCET 5/325 PO PRN ×2 (05:57→14:20)
[2018-12-05] MEDS: MILK OF MAGNESIA PO PRN (05:57)
[2018-12-05] MEDS: PRENATAL VITAMIN PO SCH (10:31)
[2018-12-05] MEDS: SENOKOT PO SCH (10:31)
[2018-12-05] MEDS: FEOSOL PO SCH (10:31)
--- NOTE | 2018-12-05 12:44 | Progress Note ---
Assessment and Plan A: /postop day 3 S/P primary low transverse section. Anemia secondary to and blood loss. P: Discharge patient home today when baby is able to go. discharge instructions and warning signs discussed with patient. Advised patient re: care of incision and activity restrictions. Advised patient to avoid lifting, intercourse, driving, and housework. Advised patient to continue taking her vitamins and iron supplements at home. Advised patient to call the office and obtain a follow up appointment in 1 week for an incision check. Patient voiced understanding of all instructions. Subjective - Subjective Date of service: 12/05/18 Principal diagnosis: POD #3; s/p Primary LTCS Interval history: /postop day 3 S/P primary low transverse section. Doing well. Patient desires discharge home today. Patient reports a small amount of lochia. Patient is voiding without difficulty, ambulating well, tolerating a regular diet without nausea or vomiting, and passing gas. Patient denies headache, cough, chest pain, shortness of breath, leg pain, abdominal pain, or heavy bleeding. Patient reports: appetite normal, voiding normally, pain well controlled, ambulating normally, no dizzy ambulation, no flatus, no nauseated : doing well, bottle feeding Objective - Vital Signs Latest vital signs: Vital Signs Temp Pulse Resp BP BP Pulse Ox 12/05/18 07:26 98.0 F 70 18 118/74 12/05/18 00:16 97.5 F L 66 18 126/79 97 12/04/18 19:20 98.6 F 89 18 136/77 95 12/04/18 16:45 98.2 F 83 20 125/86 94 Intake and Output 12/04/18 12/05/18 12/05/18 23:59 07:59 15:59 Intake Total 1000 480 Balance 1000 480 Intake: Oral 1000 480 Other: Total, Intake Amount 1000 480 # Voids Indwelling Catheter 4 - Exam Cardiovascular: Present: Regular rate, Normal S1, Normal S2, No murmurs Lungs: Present: Clear to auscultation Abdomen: Present: normal appearance, soft, normal bowel sounds. Absent: distention, tenderness, guarding, rigidity Uterus: Present: normal, firm, fundal height below umbilicus. Absent: bogginess, tenderness Extremities: Present: normal. Absent: tenderness Incision: Present: normal, dry, intact
--- NOTE | 2018-12-05 12:57 | Discharge Summary ---
Providers - Providers Date of Admission: 12/01/18 21:31 Date of discharge: 12/05/18 Attending physician: MARIA GUADALUPE CASTILLO MD Primary care physician: MARIA GUDAALUPE CASTILLO MD Hospitalization Reason for admission: induction of labor Delivery: Procedure: primary low transverse Incision: normal, dry, intact Other procedures: none complications: none Discharge diagnosis: IUP at term delivered [place] baby: male Pertinent studies: Labs Hospital course: Normal hospital course Condition at discharge: Good Disposition: DC-01 TO HOME OR SELFCARE - Discharge Diagnoses (1) Term delivered Status: Acute (2) Anemia due to blood loss Status: Acute Plan - Discharge Medications Prescriptions: Ferrous Sulfate [Feosol 325 MG tab] 1 tab PO QDAY #30 tablet Ibuprofen [Motrin] 800 mg PO Q8HR PRN #30 tablet PRN Reason: Pain, Mild (1-3) HYDROcodone/APAP 5-325 [[place] 5/325] 1 each PO Q6HR PRN #30 tablet PRN Reason: Pain Vit-Fe Fumar-FA [ Vitamin] 1 tab PO QDAY #30 tablet - Provider Discharge Summary Activity: routine, no sex for 6 weeks, no heavy lifting 4 weeks, no strenuous exercise Diet: routine Instructions: routine Additional instructions: Please continue taking your vitamin and iron supplements at home. Call your doctor immediately for: * Fever > 100.5 * Heavy vaginal bleeding ( >1 pad per hour) * Severe persistent headache * Shortness of breath * Reddened, hot, painful area to leg or breast * Drainage or odor from incision. * Keep incision clean and dry at all times and follow doctor's instructions regarding bathing/showering - Follow up plan Follow up: MARIA GUADALUPE CASTILLO MD [Primary Care Provider] - 7 Days
[2018-12-05 15:03] VITALS: BP 119/82
== END 2018-12-05 15:20 | disposition home or self-care (01) | DRG 787 ==
LOC: TRG 19:26 → LD 21:31 → OB 12-02 22:31
PROVIDERS: ADMIT Obstetrics & Gynecology; ATTEND Obstetrics & Gynecology
PROC: 0U7C7ZZ Dilation of Cervix, Via Natural or Artificial Opening (ICD-10-PCS; 2018-12-01)
PROC: 10D00Z1 Extraction of Products of Conception, Low, Open Approach (ICD-10-PCS; principal; 2018-12-02)
PROC: 10H07YZ Insertion of Other Device into Products of Conception, Via Natural or Artificial Opening (ICD-10-PCS; 2018-12-02)
PROC: 3E0E7GC Introduction of Other Therapeutic Substance into Products of Conception, Via Natural or Artificial Opening (ICD-10-PCS; 2018-12-02)
PROC: 3E0234Z Introduction of Serum, Toxoid and Vaccine into Muscle, Percutaneous Approach (ICD-10-PCS; 2018-12-03)
DX: O48.0 Post-term pregnancy (principal); O41.03X0 Oligohydramnios, third trimester, not applicable or unspecified; D62 Acute posthemorrhagic anemia; O76 Abnormality in fetal heart rate and rhythm complicating labor and delivery; O99.214 Obesity complicating childbirth; O69.81X0 Labor and delivery complicated by cord around neck, without compression, not applicable or unspecified; O99.03 Anemia complicating the puerperium; Z3A.40 40 weeks gestation of pregnancy; Z37.0 Single live birth; Z23 Encounter for immunization
CPT/HCPCS: 36415; 59200; 76815; 76819; 85014; 85018; 85027; 86592; 86850; 86900; 86901; G0378; C9250; J0690; J1170; J1885; J2405; J2590; J2765; J3010; J7030; J7120; J7121

== ENCOUNTER 2019-05-19 05:33 | Emergency (ER) | payer BC, OTHER ==
[2019-05-19 05:56] VITALS: BP 143/74
--- NOTE | 2019-05-19 06:13 | Emergency Department Report ---
ED Back Pain/Injury HPI - General Chief Complaint: Back Pain/Injury Stated Complaint: BACK PAIN/ALVARO Time Seen by Provider: 05/19/19 06:06 Source: patient Limitations: No Limitations - History of Present Illness Initial Comments: This is a 24-year-old female who presents to ED complaining of lower back pain for the past 6 months. Patient states that pain initially began after she had a baby 6 months ago, she states symptoms started after she got epidural at the hospital. She states that she often sometimes get back pain. She denies dysuria, trauma, fall or any injuries. MD Complaint: back pain - Related Data Previous Rx's Medication Instructions Recorded Last Taken Type Ferrous Sulfate [Feosol 325 MG tab] 1 tab PO QDAY #30 tablet 12/02/18 Unknown Rx HYDROcodone/APAP 5-325 [[place] 1 each PO Q6HR PRN #30 tablet 12/02/18 Unknown Rx 5/325] Ibuprofen [Motrin] 800 mg PO Q8HR PRN #30 tablet 12/02/18 Unknown Rx Vit-Fe Fumar-FA [ 1 tab PO QDAY #30 tablet 12/02/18 Unknown Rx Vitamin] Cyclobenzaprine [Flexeril] 10 mg PO QHS PRN #20 tablet 05/19/19 Unknown Rx Allergies Allergy/AdvReac Type Severity Reaction Status Date / Time No Known Allergies Allergy Verified 08/15/17 23:44 ED Review of Systems ROS: Stated complaint: BACK PAIN/ALVARO Other details as noted in HPI Comment: All other systems reviewed and negative ED Back Pain Physical Exam - Exam General: Vital signs noted. No distress. Alert and acting appropriately. Back/Abdomen: No Abdominal Tenderness, No Perithoracic Tenderness, No Perilumbar Tenderness, No Sacroiliac Tenderness, No Flank Tenderness, No Straight Leg Raise Pain Neuro: Yes Normal Sensation, Yes Normal DTR's, Yes Normal Gait, No Motor Weakness ED Course Vital Signs 05/19/19 05:37 Temperature 97.6 F Pulse Rate 85 Respiratory 18 Rate Blood Pressure 143/74 O2 Sat by Pulse 98 Oximetry ED Medical Decision Making - Medical Decision Making This 24-year-old female presents today chronic back pain most like secondary to lumbar radiculopathy Discussed the patient will need to see a neurologist. Vitas signs are normal patient is in no acute distress. Neurologist referrals given. Critical care attestation.: If time is entered above; I have spent that time in minutes in the direct care of this critically ill patient, excluding procedure time. ED Disposition Clinical Impression: Lumbar radiculopathy Chronic low back pain Qualifiers: Back pain laterality: bilateral Sciatica presence: with sciatica Disposition: TO HOME OR SELFCARE Is pt being admited?: No Does the pt Need Aspirin: No Condition: Stable Instructions: Lumbar Disc Herniation (ED), Lumbar Radiculopathy (ED) Additional Instructions: Make sure to follow up with the primary care physician as discussed. Take all your medications as you've been prescribed. If you have any worsening symptoms or develop new symptoms please return to ED immediately. Prescriptions: Cyclobenzaprine [Flexeril] 10 mg PO QHS PRN #20 tablet PRN Reason: Muscle Spasm Referrals: PRIMARY CARE, [Primary Care Provider] - 3-5 Days JENI BARTON MD [Staff Physician] - 3-5 Days PUMA CRAWFORD MD [Staff Physician] - 3-5 Days [facility] [Provider Group] - 3-5 Days Forms: Work/School Release Form(ED) Time of Disposition: 06:19
== END 2019-05-19 06:25 | disposition home or self-care (01) ==
LOC: ED 05:33
DX: G89.29 Other chronic pain (principal); M54.16 Radiculopathy, lumbar region

== ENCOUNTER 2019-08-06 16:44 | Emergency (ER) | payer BC ==
[2019-08-06 17:27] VITALS: BP 132/83
[2019-08-06] MEDS ORDERED: IBUPROFEN 800 MG TAB PO ONE (19:58)
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
[2019-08-06] MEDS ORDERED: NEOMY 3.5 MG/BACIT 400 UNITS/POLY B 5000 UNITS/GM OINT PACKET TP ONE ×2 (20:48→20:51)
== END 2019-08-06 20:50 | disposition home or self-care (01) ==
LOC: ED 16:44
DX: S50.02XA Contusion of left elbow, initial encounter (principal); S80.01XA Contusion of right knee, initial encounter; V89.2XXA Person injured in unspecified motor-vehicle accident, traffic, initial encounter; Y93.89 Activity, other specified; Y92.410 Unspecified street and highway as the place of occurrence of the external cause; Y99.8 Other external cause status
CPT/HCPCS: A6250

== ENCOUNTER 2020-03-07 18:46 | Outpatient (CLI) | payer BC, OTHER ==
[2020-03-07 19:15] VITALS: BP 117/69
[2020-03-07 19:59] LABS: Bacteria,Urine 1+ /HPF (Negative); Bilirubin,Urine NEG (Negative); Blood,Urine NEG (Negative); Color,Urine Yellow (Yellow); Mucus,Urine FEW /HPF; Protein,Urine <15 mg/dL mg/dL (Negative); Urobilinogen,Urine < 2.0 mg/dL (<2.0)
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
== END 2020-03-07 20:40 | disposition home or self-care (01) ==
LOC: TRG 18:46 → APU 18:48 → TRG 20:40
PROVIDERS: ATTEND Obstetrics & Gynecology
DX: O30.002 Twin pregnancy, unspecified number of placenta and unspecified number of amniotic sacs, second trimester (principal); O32.1XX1 Maternal care for breech presentation, fetus 1; O32.1XX2 Maternal care for breech presentation, fetus 2; Z3A.27 27 weeks gestation of pregnancy
CPT/HCPCS: 59025; 76815; 76819; 81001

== ENCOUNTER 2020-05-19 07:30 | Inpatient (IN) | payer BC, OTHER ==
--- NOTE | 2020-05-18 13:43 | History and Physical Report ---
History of Present Illness Date of examination: 05/18/20 Chief complaint: repeat c/s for twin gestation with malpresentation and IUGR History of present illness: 25 yo at 38w0d c/b primary c/s x 1 (for distress), Class II Obesity, short interval , sickle cell trait (FOB not involved), malpresentation of twin A, di/di twin gestation with IUGR of twin B for repeat c section. Past History Past Medical History: no pertinent history Past Surgical History: section (x1) Family/Genetic History: none - Obstetrical History : 2 Para: 1 Hx # Term Pregnancies: 1 Number of Living Children: 1 Medications and Allergies Allergies Allergy/AdvReac Type Severity Reaction Status Date / Time No Known Allergies Allergy Verified 08/15/17 23:44 Home Medications Medication Instructions Recorded Confirmed Last Taken Type Ferrous Sulfate [Feosol 325 MG tab] 1 tab PO QDAY #30 tablet 12/02/18 Unknown Rx HYDROcodone/APAP 5-325 [[place] 1 each PO Q6HR PRN #30 tablet 12/02/18 Unknown Rx 5/325] Ibuprofen [Motrin] 800 mg PO Q8HR PRN #30 tablet 12/02/18 Unknown Rx Vit-Fe Fumar-FA [ 1 tab PO QDAY #30 tablet 12/02/18 Unknown Rx Vitamin] Cyclobenzaprine [Flexeril] 10 mg PO QHS PRN #20 tablet 05/19/19 Unknown Rx Cyclobenzaprine [Flexeril] 10 mg PO TID PRN #10 tablet 08/06/19 Unknown Rx Ibuprofen [Motrin 800 MG tab] 800 mg PO Q8HR PRN #20 tablet 08/06/19 Unknown Rx Active Meds: Active Medications Citric Acid/Sodium Citrate (Bicitra Oral Liqd 30ml) 30 ml PO ONCE ONE Stop: 05/18/20 13:38 Famotidine (Famotidine 20 Mg/2 Ml Inj) 20 mg IV ONCE ONE Stop: 05/18/20 13:38 Lactated Ringer's (Lactated Ringers) 1,000 mls @ 2,250 mls/hr IV PREOP JEN Stop: 05/19/20 14:12 Oxytocin/Sodium Chloride (Pitocin/Ns 30 Unit/500ml) 30 units in 500 mls @ 0 mls/hr IV TITR JEN; Protocol Cefazolin Sodium (Ancef/Sterile Water 2 Gm/20 Ml) 2 gm in 20 mls @ 80 mls/hr IV PREOP NR; Protocol Metoclopramide HCl (Metoclopramide 10 Mg/2 Ml Inj) 10 mg IV ONCE ONE Stop: 05/18/20 13:38 Review of Systems All systems: negative (expect HPI) - Physical Exam Abdomen: Positive: normal appearance, normal bowel sounds - Obstetrical FHR: category 1 Uterine Contraction Monitor Mode: External Uterine Contraction Pattern: Absent Results All other labs normal. Assessment and Plan - Patient Problems (1) Twin gestation in third trimester Status: Acute Plan to address problem: --To OR for repeat c/s for malpresentation of twin B and IUGR of twin A --Consented in the chart --Questions solicited and answered
[2020-05-19] MEDS ORDERED: OXYTOCIN DRIP 30 UNITS/500 ML BAG IV SCH (19:15)
[2020-05-19] MEDS ORDERED: FAMOTIDINE 20 MG/2 ML INJ IV ONE ×2 (20:00→23:00)
[2020-05-19] MEDS ORDERED: ceFAZolin/Water 2 GM/20 ML 2 GM/20 ML SYRINGE IV NR (20:00)
[2020-05-19] MEDS ORDERED: BICITRA ORAL LIQD 30ML PO ONE ×2 (20:00→23:00)
[2020-05-19] MEDS ORDERED: METOCLOPRAMIDE 10 MG/2 ML INJ IV ONE ×2 (20:00→23:00)
[2020-05-19] MEDS: LACTATED RINGERS 1,000 ML IV SCH ×2 (20:30→22:20)
[2020-05-19] MEDS ORDERED: PROMETHAZINE 25 MG TAB PO PRN (21:04)
[2020-05-19] MEDS ORDERED: HYDROmorphone 1 MG/1 ML INJ IV PRN (21:04)
[2020-05-19] MEDS ORDERED: NALOXONE 0.4 MG/1 ML INJ IV PRN (21:04)
[2020-05-19] MEDS ORDERED: PROMETHAZINE 25 MG RECT SUPP PR PRN (21:04)
[2020-05-19] MEDS ORDERED: diphenhydrAMINE 50 MG/ML VIAL IV PRN (21:04)
[2020-05-19] MEDS ORDERED: ONDANSETRON 4 MG/2 ML INJ IV PRN (21:04)
[2020-05-19] MEDS ORDERED: NalbUPHINE 10 MG/1 ML INJ IV PRN (21:04)
[2020-05-19 21:18] LABS: Basophils % (Auto) 0.3 % (0.0-1.8); Eosinophils # (Auto) 0.1 K/mm3 (0.0-0.4); Eosinophils % (Auto) 1.3 % (0.0-4.3); Hematocrit 29.8 % (30.3-42.9); Hemoglobin 9.7 gm/dl (10.1-14.3); Lymphocytes % (Auto) 23.1 % (13.4-35.0); Mean Corpuscular HGB Conc 33 % (30-34); Monocytes # (Auto) 0.7 K/mm3 (0.0-0.8); Monocytes % (Auto) 8.3 % (0.0-7.3); Platelet Count 227 K/mm3 (140-440); Red Blood Count 4.45 M/mm3 (3.65-5.03); Red Cell Distribution Width 18.3 % (13.2-15.2)
[2020-05-19 21:23] LABS: Mean Corpuscular Volume 67 fl (79-97)
--- NOTE | 2020-05-19 21:28 | Anesthesia Day of Surgery ---
Anesthesia Day of Surgery - Day of Surgery Patient Examined: Yes Patient H&P Reviewed: Yes Patient is NPO: Yes Beta Blockers: No Cardiac Clearance: No Pulmonary Clearance: No Reagan's Test: N/A
--- NOTE | 2020-05-19 21:28 | Anesthesia Consultation ---
Anesthesia Consult and Med Hx Date of service: 05/19/20 - Airway Anesthetic Teeth Evaluation: Good ROM Head & Neck: Adequate Mental/Hyoid Distance: Adequate Mallampati Class: Class III Intubation Access Assessment: Possibly Difficult - Pulmonary Exam CTA: Yes - Cardiac Exam Cardiac Exam: RRR - Pre-Operative Health Status ASA Pre-Surgery Classification: ASA2 Proposed Anesthetic Plan: Spinal - Pulmonary Hx Smoking: No Hx Asthma: No COPD: No Hx Pneumonia: No Hx Sleep Apnea: No - Cardiovascular System Hx Hypertension: No Hx Heart Attack/AMI: No Hx Angina: No - Central Nervous System Hx Seizures: No Hx Psychiatric Problems: No - Gastrointestinal Hx Gastroesophageal Reflux Disease: No - Endocrine Hx Renal Disease: No Hx End Stage Renal Disease: No Hx Insulin Dependent Diabetes: No Hx Non-Insulin Dependent Diabetes: No Hx Hypothyroidism: No Hx Hyperthyroidism: No - Hematic Hx Anemia: Yes (First ) Hx Sickle Cell Disease: No - Other Systems Hx Alcohol Use: No Hx Obesity: Yes
[2020-05-19] MEDS ORDERED: SODIUM CHLORIDE 0.9% 500 ML 500 ML IV ONE (22:31)
--- NOTE | 2020-05-19 23:07 | Event Note ---
Date: 05/19/20 at 38.0wks with di/di twin gestation and care at [facility] high risk and twin A with IUGR hence delivery indication. Pt has previous section done in 2019. Pt with sickle cell trait, anemia asymptomatic. Vitals wnl, abd soft, gravid uterus, acontractile and category I on both fetuses. Consents obtained for repeat section procedure and 2units of PRBC placed on hold. All questions encouraged and answered, anesthesiologist and NICU aware. Mother of pt present in room. Pt desires depo contraception prior to discharge.
--- NOTE | 2020-05-19 23:14 | Procedure Note ---
OB Delivery Note - Delivery Date of Delivery: 05/20/20 Surgeon: SHOSHANA GONZALEZ (Asst: technical business systems analyst Shoshanaher Townsend) Estimated blood loss: 1000cc - Section Preop diagnosis: repeat (This is operative dictation note for patient Gera Vaughn [facility] operative procedure performed on May 20, 2020 Surgeon Shoshana Gonzalez MD preoperative diagnosis term intrauterine at 38 weeks with twin rama-gestation. Twin A with intrauterine growth rest), breech, other (Twin A with IUGR) Postop diagnosis: same section procedure: repeat low transverse Disposition: floor Complications: none Narrative: Operative dictation note Preoperative diagnosis: Term intrauterine at 38.0 weeks, rama-twin gestation with twin A breech presentation, twin A with intrauterine growth retardation; Previous section x1; Obesity Postoperative diagnosis: Same Surgeon: Shoshana Gonzalez [employer] Installer: technical business systems analyst Shoshana Townsend Anesthesia: Spinal Intake: 1500 cc crystalloids Output: 500 cc clear urine EBL: 1000cc per Anesthesia Findings: Twin A transverse lie with back down, clear amniotic fluid, weight 2220 g, Apgars 8/9. Twin B, complete breech, clear amniotic fluid weight 2438 g, Apgars 8/9; anterior and posterior di/di placenta Procedure: After the risks benefits and alternatives of the procedure was discussed in detail and consents signed, patient was taken to the operating room and given spinal anesthesia. After same was adequate, patient was placed supine, prepped and draped in the usual sterile fashion. Yee catheter was already present draining clear urine. Pfannenstiel skin incision was then made and taken sharply to the rectus fascia. The fascia was incised in the midline and extended bilaterally using electrocautery. Superior aspect of the fascial incision was then grasped with Marc clamps and the rectus muscle both bluntly and also with electrocautery. The inferior aspect of the same incision was grasped with Marc clamps and the rectus muscle sharply. The rectus muscles then grasped in the midline and using scalpel and taken sharply to the intra-abdominal cavity. The incision was extended superiorly and inferiorly with good visualization of the bladder. The Yasmany retractor was then placed without difficulty and the bladder flap created sharply. The lower uterine segment of the uterus was then entered transversely and the amniotic sac entered clear fluid seen and 2 with a transverse lie delivered breech without difficulty. Twin A was suctioned and handed off to the waiting hot patcher and cord clamped. Attention was given to the second amniotic sac and it was entered noting clear amniotic fluid. Twin B was in complete breech presentation and delivered in a similar manner as twin A without difficulty cord clamped suctioned and delivered to the waiting pediatricians. The di/di placenta seen was then removed manually and the uterus cleared of all clots and debris. The uterus was repaired in 2 layers using 0 Vicryl suture running locked for the first layer and the second layer of imbrication done for hemostasis. The gutters were then cleared of all clots and debris. The anterior peritoneum was closed with 3-0 Vicryl suture. The rectus muscle was reapproximated with interrupted 0 Vicryl suture. The fascia was closed in a continuous fashion using 0 Vicryl suture. Copious irrigation was done using normal saline to the subcutaneous tissue. Subcutaneous tissue was reapproximated using 0 Vicryl suture in a continuous fashion. The skin was closed with 3-0 Monocryl subcutaneously with excellent hemostasis Steri-Strips were placed and pressure dressing applied. Patient was also given Cytotec 800 mics per rectum with an over distended uterus and a hemoglobin of 9 preoperatively. Patient was taken to the recovery room stable. Sponge lap instrument and needle counts were correct x2 dictation done by Dr. Shoshana Gonzalez - A at 1 minute: 8 at 5 minutes: 9 Infant Gender: Female B at 1 minute: 8 at 5 minutes: 9 Gender: Female (Twin A transverse lie, back down, wt 2200g delivered at 12MN; Twin B, complete breech, wt 2438g delivered at 00:02; Di/di complete placentas at 00:04)
[2020-05-19] MEDS ORDERED: ceFAZolin/STERILE WATER 2 GM/20 ML SYRINGE IV ONE (23:40)
[2020-05-19] MEDS ORDERED: SODIUM CHLORIDE 0.9% IRR 1,500 ML BOTTLE IR ONE (23:40)
[2020-05-19] MEDS ORDERED: WATER FOR IRRIG STERILE 1,500 ML BOTTLE IR ONE (23:40)
[2020-05-19] MEDS ORDERED: ONDANSETRON 4 MG/2 ML INJ ONE (23:48)
[2020-05-19] MEDS ORDERED: PHENYLEPHRINE/NS 1,000 MCG/10 ML SYRINGE (OR USE) IV ONE (23:48)
[2020-05-19] MEDS ORDERED: ePHEDrine SULFATE 50 MG/1 ML INJ ONE (23:48)
[2020-05-19] MEDS ORDERED: KETOROLAC 30 MG/1 ML INJ ONE (23:48)
[2020-05-19] MEDS ORDERED: BUPIVACAINE /DEX-WATER 0.75% (2 ML) AMPULE INFILTRATI ONE (23:48)
[2020-05-20] MEDS ORDERED: miSOPROStol 200 MCG TAB ONE (01:00)
[2020-05-20] MEDS ORDERED: miSOPROStol 200 MCG TAB PR ONE (01:00)
--- NOTE | 2020-05-20 01:20 | Progress Note ---
Spinal Anesthesia Block - Spinal Anesthesia Block Start Time: 23:10 Stop Time: 23:30 Performed by:: ARIANA HENLEY Procedure: Spinal anesthesia block is being performed for [C/S]. H&P, labs have been reviewed. Patient's questions and concerns have been answered. Informed consent has been performed. Timeout has was performed. Patient in sitting position on side of bed. Sterile prep and drape was performed. 3 mL 1% lidocaine skin wheal at L [3]-L [4]. Needle introducer advanced. 25-gauge spinal needle advanced, [+] CSF [-] blood. [Marcaine 11.25mg and Precedex 5mcg] Spinal dose was given. All needles removed. Patient tolerated procedure well.
[2020-05-20] MEDS ORDERED: oxyCODONE /ACETAMINOPHEN 5-325MG TAB PO PRN (02:14)
[2020-05-20] MEDS: LACTATED RINGERS 1,000 ML IV SCH (03:26)
[2020-05-20] MEDS ORDERED: SIMETHICONE 80 MG CHEW TAB PO PRN (04:14)
[2020-05-20] MEDS ORDERED: ONDANSETRON 4 MG/2 ML INJ IV PRN (04:14)
[2020-05-20] MEDS ORDERED: OXYTOCIN DRIP 30 UNITS/500 ML BAG IV SCH (04:14)
[2020-05-20] MEDS ORDERED: WITCH HAZEL/ GLYCERIN PAD TP PRN (04:14)
[2020-05-20] MEDS ORDERED: LANOLIN/ZINC/DIMETHICONE (LANSINOH) 7 GM TP PRN (04:14)
[2020-05-20] MEDS ORDERED: IBUPROFEN 600 MG TAB PO PRN (04:14)
[2020-05-20] MEDS ORDERED: NALOXONE 0.4 MG/1 ML INJ IV PRN (04:14)
[2020-05-20] MEDS ORDERED: MAGNESIUM HYDROXIDE (MOM) ORAL LIQD UDC PO PRN (04:14)
[2020-05-20] MEDS: ceFAZolin/NS 1 GM/50 ML 1 GM/50 ML BAG IV SCH ×2 (08:12→16:03)
[2020-05-20] MEDS: PRENATAL VIT27-FE FUMARATE-FOLIC ACID VIT TAB PO SCH (09:17)
[2020-05-20] MEDS: FERROUS SULFATE 325 MG TAB PO SCH (09:17)
[2020-05-20] MEDS: IBUPROFEN 800 MG TAB PO PRN ×2 (09:18→20:04)
--- NOTE | 2020-05-20 13:28 | Post Anesthesia Evaluation ---
- Post Anesthesia Evaluation Patient Participated: Yes Airway Patent: Yes Stable Respiratory Function: Yes Nausea/Vomiting: No Temp > 96.8F: Yes Pain Manageable: Yes Adequeate Hydration: Yes Anesthesia Complications: No Block Receding Appropriately: Yes
[2020-05-20] MEDS ORDERED: LACTATED RINGERS 1,000 ML IV SCH (16:15)
[2020-05-20] MEDS: oxyCODONE /ACETAMINOPHEN 5-325MG TAB PO PRN ×2 (16:28→20:35)
[2020-05-20 17:07] LABS: Hematocrit 27.4 % (30.3-42.9); Hemoglobin 9.1 gm/dl (10.1-14.3)
--- NOTE | 2020-05-20 21:44 | Progress Note ---
Assessment and Plan POD1 repeat c/section and severe preclampsia resolving well 1. Pt transferred to floor 2. CBC results seen and pt hgb stable at 9.1 (preop 9.7) 3. Needs to ambulate more often to enhance bowel motility 4. Will advance to full liquid diet with pt without nausea 5. Remove wound dressing after 24hrs tomorrow 6. Continue labetalol med 300mg bid with BP now controlled - Patient Problems (1) S/P primary low transverse Current Visit: No Status: Acute Subjective Date of service: 05/20/20 Interval history: pt denies pain, vaginal bleeding much improved and remains without clots, both babies are now with patient, none in NICU. Pt wants to eat food, however denies passing gas. Pt tolerates current liquids well. Pt declined dulcolax suppos. Pt voiding well without difficulty. Denies headache Objective - Constitutional Vitals: Vital Signs - 12hr 05/20/20 05/20/20 12:19 16:26 Temperature 97.7 F 98.0 F Pulse Rate 75 Respiratory 18 18 Rate Blood Pressure 118/71 117/76 O2 Sat by Pulse 95 Oximetry General appearance: Present: no acute distress - Neck Neck: normal ROM - Respiratory Respiratory effort: normal - Breasts Breasts: deferred - Cardiovascular Rhythm: regular Extremities: no ischemia - Gastrointestinal General gastrointestinal: Present: soft, non-tender, non-distended - Genitourinary Female genitourinary: deferred - Musculoskeletal Musculoskeletal: strength equal bilaterally - Neurologic Neurologic: gait normal - Psychiatric Psychiatric: appropriate mood/affect - Labs CBC & Chem 7: 05/20/20 15:59 Labs: Abnormal lab results 05/19/20 05/20/20 Range/Units 21:09 15:59 Hgb 9.1 L (10.1-14.3) gm/dl Hct 27.4 L (30.3-42.9) % Crossmatch See Detail Medications & Allergies - Medications Allergies/Adverse Reactions: Allergies No Known Allergies Allergy (Verified 08/15/17 23:44) Home Medications: Home Medications Medication Instructions Recorded Confirmed Last Taken Type Ferrous Sulfate [Feosol 325 MG tab] 1 tab PO QDAY #30 tablet 12/02/18 Unknown Rx HYDROcodone/APAP 5-325 [[place] 1 each PO Q6HR PRN #30 tablet 12/02/18 Unknown Rx 5/325] Vit-Fe Fumar-FA [ 1 tab PO QDAY #30 tablet 12/02/18 Unknown Rx Vitamin] Cyclobenzaprine [Flexeril] 10 mg PO QHS PRN #20 tablet 05/19/19 Unknown Rx Cyclobenzaprine [Flexeril] 10 mg PO TID PRN #10 tablet 08/06/19 Unknown Rx Ibuprofen [Motrin 800 MG tab] 800 mg PO Q8HR PRN #20 tablet 08/06/19 Unknown Rx Ibuprofen [Motrin 800 MG tab] 800 mg PO Q8HR PRN #30 tablet 05/20/20 Unknown Rx oxyCODONE /ACETAMINOPHEN [Percocet 1 tab PO Q4H PRN #30 tablet 05/20/20 Unknown Rx 5/325 mg] Active Medications: Generic Name Dose Route Start Last Admin Trade Name Freq PRN Reason Stop Dose Admin Diphenhydramine HCl 12.5 mg 05/19/20 21:04 Diphenhydramine 50 Mg/Ml Vial IV Q2H PRN Itching Ferrous Sulfate 325 mg 05/20/20 10:00 05/20/20 09:17 Ferrous Sulfate 325 Mg Tab PO 325 mg QDAY JEN Administration Hydromorphone HCl 0.5 mg 05/19/20 21:04 05/20/20 08:12 Hydromorphone 1 Mg/1 Ml Inj IV 0.5 mg Q4H PRN Administration breakthrough pain > 7/10 Oxytocin/Sodium Chloride 30 units in 500 mls @ 40 mls/hr 05/20/20 04:14 Pitocin/Ns 30 Unit/500ml IV TITR JEN Protocol Lactated Ringer's 1,000 mls @ 42 mls/hr 05/20/20 16:15 Lactated Ringers IV DIRECT JEN Ibuprofen 800 mg 05/20/20 04:14 05/20/20 20:04 Ibuprofen 800 Mg Tab PO 800 mg Q6H PRN Administration Pain, Mild (1-3) Magnesium Hydroxide 30 ml 05/20/20 04:14 Magnesium Hydroxide (Mom) Oral Liqd Udc PO QHS PRN Constip Unrelieved By Senna Multi-Ingredient Ointment 1 applic 05/20/20 04:14 Lanolin/Zinc/Dimethicone (Lansinoh) 7 Gm TP PRN PRN dryness/cracking Multivitamins/Iron/Calcium 1 each 12/19/20 10:00 05/20/20 09:17 [id number] Fumarate-Folic Acid Vit Tab PO 1 each QDAY JEN Administration Nalbuphine HCl 2.5 mg 05/19/20 21:04 Nalbuphine 10 Mg/1 Ml Inj IV Q2H PRN Itching Naloxone HCl 0.1 mg 05/20/20 04:14 Naloxone 0.4 Mg/1 Ml Inj IV Q2MIN PRN Res Rate </= 8 or 02 SAT < 92% Ondansetron HCl 4 mg 05/20/20 04:14 Ondansetron 4 Mg/2 Ml Inj IV Q8H PRN Nausea And Vomiting Oxycodone/Acetaminophen 1 tab 05/20/20 04:14 05/20/20 20:35 Oxycodone /Acetaminophen 5-325mg Tab PO 1 tab Q6H PRN Administration Pain, Moderate (4-6) Promethazine HCl 25 mg 05/19/20 21:04 Promethazine 25 Mg Tab PO Q6H PRN Nausea And Vomiting Promethazine HCl 25 mg 05/19/20 21:04 Promethazine 25 Mg Rect Supp CA Q6H PRN Nausea And Vomiting Simethicone 80 mg 05/20/20 04:14 05/20/20 09:17 Simethicone 80 Mg Chew Tab PO 80 mg Q6H PRN Administration Gas pain Sodium Chloride 10 ml 05/20/20 04:14 Sodium Chloride 0.9% 10 Ml Flush Syringe IV PRN PRN LINE FLUSH Witch Bessy/Glycerin 1 each 05/20/20 04:14 [place]/ Glycerin Pad TP PRN PRN Hemorrhoids/cleansing/soothing
[2020-05-21] MEDS: oxyCODONE /ACETAMINOPHEN 5-325MG TAB PO PRN (03:18)
--- NOTE | 2020-05-21 10:11 | Progress Note ---
Assessment and Plan A: /postop day 2 S/P repeat low transverse section (twin gestation, malpresentation). Anemia, on oral iron supplementation. P: Continue oral iron. Encouraged patient to ambulate. May remove dressing later today. Subjective - Subjective Date of service: 05/21/20 Principal diagnosis: /postop day 2 S/P repeat LTCS Interval history: /postop day 2 S/P repeat low transverse section. Anemia, on oral iron supplementation. Patient is ambulating well, passing gas, voiding without difficulty, and tolerating a regular diet. Patient denies headache, chest pain, cough, shortness of breath, leg pain, heavy vaginal bleeding, nausea or vomiting, or any other problems. Patient reports: appetite normal, voiding normally, pain well controlled, flatus , ambulating normally, no dizzy ambulation, no nauseated [place]: doing well, bottle feeding Objective - Vital Signs Latest vital signs: Vital Signs Temp Pulse Resp BP Pulse Ox 05/21/20 08:34 97.9 F 81 18 127/81 96 05/20/20 23:47 98.2 F 79 20 119/81 95 05/20/20 21:12 98.1 F 81 18 108/71 95 05/20/20 16:26 98.0 F 18 117/76 05/20/20 12:19 97.7 F 75 18 118/71 95 Intake and Output 05/20/20 05/21/20 05/21/20 23:59 07:59 15:59 Intake Total 620 Output Total 600 300 Balance -600 320 Intake: Intake, Free Water 620 Output: Urine 600 300 Void 600 300 Other: Total, Output Amount 600 300 # Voids Void 1 - Exam Cardiovascular: Present: Regular rate Lungs: Present: Clear to auscultation Abdomen: Present: normal appearance, soft, normal bowel sounds. Absent: distention, tenderness, guarding, rigidity Uterus: Present: normal, firm, fundal height below umbilicus. Absent: bogginess, tenderness Extremities: Present: normal. Absent: tenderness Incision: Present: normal, dry, dressed - Labs Labs: Abnormal lab results 05/20/20 Range/Units 15:59 Hgb 9.1 L (10.1-14.3) gm/dl Hct 27.4 L (30.3-42.9) %
[2020-05-21] MEDS: FERROUS SULFATE 325 MG TAB PO SCH (10:17)
[2020-05-21] MEDS: PRENATAL VIT27-FE FUMARATE-FOLIC ACID VIT TAB PO SCH (10:17)
[2020-05-21] MEDS: IBUPROFEN 800 MG TAB PO PRN ×2 (12:34→18:26)
--- NOTE | 2020-05-22 07:21 | Progress Note ---
Assessment and Plan A: /postop day 3 S/P repeat low transverse section (twin gestation, malpresentation). Anemia. P: Discharge patient home today. Discussed with patient /postop discharge instructions and warning signs. Advised patient to avoid lifting, housework, driving, and intercourse. Advised patient re: care of incision. Ad vised patient to continue taking her vitamin and iron supplements at home. Advised patient to follow up at [facility] in 1 week for incision check. Patient voiced understanding of instructions. Subjective - Subjective Date of service: 05/22/20 Principal diagnosis: /postop day 3 S/P repeat LTCS Interval history: /postop day 3 S/P repeat low transverse section. Anemia, on oral iron supplementation. Patient is ambulating well, passing gas, voiding without difficulty, and tolerating a regular diet. Patient denies headache, chest pain, cough, shortness of breath, leg pain, heavy vaginal bleeding, nausea or vomiting, or any other problems. Patient reports: appetite normal, voiding normally, pain well controlled, flatus, ambulating normally, no dizzy ambulation, no nauseated [place]: doing well Objective - Vital Signs Latest vital signs: Vital Signs Temp Pulse Resp BP BP Pulse Ox 05/22/20 01:25 98.4 F 82 20 128/76 97 05/21/20 16:43 97.7 F 88 18 102/62 98 05/21/20 08:34 97.9 F 81 18 127/81 96 Intake and Output 05/21/20 05/21/20 05/22/20 15:59 23:59 07:59 Intake Total 124 240 Balance 124 240 Intake: Oral 124 240 Other: Total, Intake Amount 124 240 # Voids Void 1 1 1 - Exam Cardiovascular: Present: Regular rate Lungs: Present: Clear to auscultation Abdomen: Present: normal appearance, soft, normal bowel sounds. Absent: distention, tenderness, guarding, rigidity Uterus: Present: normal, firm, fundal height below umbilicus. Absent: bogginess, tenderness Extremities: Present: normal. Absent: tenderness Incision: Present: normal, dry, intact
--- NOTE | 2020-05-22 07:25 | Discharge Summary ---
Providers - Providers Date of Admission: 05/19/20 18:16 Date of discharge: 05/22/20 Attending physician: DENIS REDDY 05/20/20 04:14 Consult to Track Template Maker [CONS] Routine Reason For Exam: Primary care physician: DENIS REDDY Hospitalization Reason for admission: section Delivery: Procedure: repeat low transverse Incision: normal, dry, intact Other procedures: none complications: none Discharge diagnosis: IUP at term delivered baby: twins Pertinent studies: Labs Hospital course: Normal hospital course Condition at discharge: Good Disposition: DC-[id number] TO HOME OR SELFCARE - Discharge Diagnoses (1) Anemia Status: Acute (2) Term delivered Status: Acute Plan - Discharge Medications Prescriptions: Ibuprofen [Motrin 800 MG tab] 800 mg PO Q8HR PRN #30 tablet PRN Reason: Pain, Mild (1-3) oxyCODONE /ACETAMINOPHEN [Percocet 5/325 mg] 1 tab PO Q4H PRN #30 tablet PRN Reason: Pain, Moderate (4-6) - Provider Discharge Summary Activity: routine, no sex for 6 weeks, no heavy lifting 4 weeks, no strenuous exercise Diet: routine Instructions: routine Additional instructions: Continue taking your vitamins and iron supplements at home. Call your doctor immediately for: * Fever > 100.5 * Heavy vaginal bleeding ( >1 pad per hour) * Severe persistent headache * Shortness of breath * Reddened, hot, painful area to leg or breast * Drainage or odor from incision. * Keep incision clean and dry at all times and follow doctor's instructions regarding bathing/showering - Follow up plan Follow up: DENIS REDDY MD [Primary Care Provider] - 7 Days
[2020-05-22] MEDS: oxyCODONE /ACETAMINOPHEN 5-325MG TAB PO PRN (08:46)
[2020-05-22] MEDS: FERROUS SULFATE 325 MG TAB PO SCH (16:21)
[2020-05-22] MEDS: PRENATAL VIT27-FE FUMARATE-FOLIC ACID VIT TAB PO SCH (16:21)
[2020-05-22 16:53] VITALS: BP 123/82
== END 2020-05-22 19:35 | disposition home or self-care (01) | DRG 788 ==
LOC: APU 18:16 → OB 05-20 03:14
PROVIDERS: ADMIT Obstetrics & Gynecology; ATTEND Obstetrics & Gynecology
PROC: 10D00Z1 Extraction of Products of Conception, Low, Open Approach (ICD-10-PCS; principal; 2020-05-19)
PROC: 3E0T3BZ Introduction of Anesthetic Agent into Peripheral Nerves and Plexi, Percutaneous Approach (ICD-10-PCS; 2020-05-20)
DX: O30.043 Twin pregnancy, dichorionic/diamniotic, third trimester (principal); O99.02 Anemia complicating childbirth; D64.9 Anemia, unspecified; Z20.828 Contact with and (suspected) exposure to other viral communicable diseases; Z37.2 Twins, both liveborn; Z3A.38 38 weeks gestation of pregnancy; O36.5931 Maternal care for other known or suspected poor fetal growth, third trimester, fetus 1; O32.2XX1 Maternal care for transverse and oblique lie, fetus 1; O32.1XX2 Maternal care for breech presentation, fetus 2
CPT/HCPCS: 36415; 59025; 85014; 85018; 85025; 86850; 86900; 86901; 86920; 88307; 96360; 96361; G0378; J0690; J1170; J1885; J2370; J2405; J2765; J3490; J7120; U0003

== ENCOUNTER 2021-09-14 22:40 | Emergency (ER) | payer OTHER ==
[2021-09-14 23:30] VITALS: BP 120/72
[2021-09-15] MEDS ORDERED: KETOROLAC 10 MG TAB PO ONE (07:46)
--- NOTE | 2021-09-15 09:43 | Emergency Department Report ---
ED Abdominal Pain HPI - General Chief Complaint: Abdominal Pain Stated Complaint: RT SIDE PAIN Time Seen by Provider: 09/15/21 07:45 Source: patient Mode of arrival: Ambulatory Limitations: No Limitations - History of Present Illness Initial Comments: 26-year-old black female with no past medical history presents to the emergency department for evaluation of pain to the right flank area for the past 3 days. She states that pain started after [place] She states that she has never hiked that far before and pain has been persistent since then but she has not taken any medication for it. She denies abdominal pain, nausea, vomiting, chest pain, cough, fever, dysuria, or changes in appetite. She states pain is worse when she moves around. MD Complaint: flank pain (Right only) -: Gradual, days(s) (3) Location: R flank Radiation: none Migration to: no migration Severity scale (0 -10): 10 Consistency: intermittent Worsens With: movement Context: other (Increase in activity) Associated Symptoms: denies: nausea, vomiting, diarrhea, fever, chills, dysuria, hematemesis, hematochezia, melena, hematuria, anorexia, syncope - Related Data LMP (females 10-50): this week Previous Rx's Medication Instructions Recorded Last Taken Type Ferrous Sulfate [Feosol 325 MG tab] 1 tab PO QDAY #30 tablet 12/02/18 Unknown Rx HYDROcodone/APAP 5-325 [[place] 1 each PO Q6HR PRN #30 tablet 12/02/18 Unknown Rx 5/325] Vit-Fe Fumar-FA [ 1 tab PO QDAY #30 tablet 12/02/18 Unknown Rx Vitamin] Cyclobenzaprine [Flexeril] 10 mg PO QHS PRN #20 tablet 05/19/19 Unknown Rx Cyclobenzaprine [Flexeril] 10 mg PO TID PRN #10 tablet 08/06/19 Unknown Rx Ibuprofen [Motrin 800 MG tab] 800 mg PO Q8HR PRN #20 tablet 08/06/19 Unknown Rx Ibuprofen [Motrin 800 MG tab] 800 mg PO Q8HR PRN #30 tablet 05/20/20 Unknown Rx oxyCODONE /ACETAMINOPHEN [Percocet 1 tab PO Q4H PRN #30 tablet 05/20/20 Unknown Rx 5/325 mg] Allergies Allergy/AdvReac Type Severity Reaction Status Date / Time No Known Allergies Allergy Verified 08/15/17 23:44 ED Review of Systems ROS: Stated complaint: RT SIDE PAIN Other details as noted in HPI Comment: All other systems reviewed and negative Constitutional: denies: chills, fever ENT: denies: congestion Respiratory: denies: cough, shortness of breath, SOB with exertion, SOB at rest Cardiovascular: denies: chest pain, palpitations Gastrointestinal: abdominal pain (Right flank). denies: nausea, vomiting, diarrhea, hematemesis, melena, hematochezia Genitourinary: denies: urgency, dysuria, frequency, hematuria, discharge Skin: denies: rash Neurological: denies: headache, weakness ED Past Medical Hx - Past Medical History Previous Medical History?: No Hx Hypertension: No Hx Heart Attack/AMI: No Hx Congestive Heart Failure: No Hx Diabetes: No Hx Deep Vein Thrombosis: No Hx Renal Disease: No Hx Sickle Cell Disease: No Hx Seizures: No Hx Asthma: No Hx COPD: No Hx HIV: No - Surgical History Past Surgical History?: Yes Additional Surgical History: - Social History Smoking Status: Never Smoker - Medications Home Medications: Home Medications Medication Instructions Recorded Confirmed Last Taken Type Ferrous Sulfate [Feosol 325 MG tab] 1 tab PO QDAY #30 tablet 12/02/18 Unknown Rx HYDROcodone/APAP 5-325 [[place] 1 each PO Q6HR PRN #30 tablet 12/02/18 Unknown Rx 5/325] Vit-Fe Fumar-FA [ 1 tab PO QDAY #30 tablet 12/02/18 Unknown Rx Vitamin] Cyclobenzaprine [Flexeril] 10 mg PO QHS PRN #20 tablet 05/19/19 Unknown Rx Cyclobenzaprine [Flexeril] 10 mg PO TID PRN #10 tablet 08/06/19 Unknown Rx Ibuprofen [Motrin 800 MG tab] 800 mg PO Q8HR PRN #20 tablet 08/06/19 Unknown Rx Ibuprofen [Motrin 800 MG tab] 800 mg PO Q8HR PRN #30 tablet 05/20/20 Unknown Rx oxyCODONE /ACETAMINOPHEN [Percocet 1 tab PO Q4H PRN #30 tablet 05/20/20 Unknown Rx 5/325 mg] ED Physical Exam - General Limitations: No Limitations General appearance: alert, in no apparent distress - Head Head exam: Present: atraumatic, normocephalic - Eye Eye exam: Present: normal appearance. Absent: conjunctival injection - Neck Neck exam: Present: normal inspection, full ROM. Absent: tenderness, lymphadenopathy - Respiratory Respiratory exam: Present: normal lung sounds bilaterally. Absent: respiratory distress, wheezes, rales, rhonchi, stridor, chest wall tenderness - Cardiovascular Cardiovascular Exam: Present: tachycardia, normal heart sounds - GI/Abdominal GI/Abdominal exam: Present: soft, normal bowel sounds. Absent: distended, tenderness, guarding, rebound, rigid - Extremities Exam Extremities exam: Present: normal inspection, normal capillary refill. Absent: pedal edema, joint swelling, calf tenderness - Back Exam Back exam: Present: normal inspection. Absent: tenderness, CVA tenderness (R), CVA tenderness (L), paraspinal tenderness, vertebral tenderness - Neurological Exam Neurological exam: Present: alert, oriented X3, normal gait - Psychiatric Psychiatric exam: Present: normal affect, normal mood - Skin Skin exam: Present: warm, dry, intact, normal color ED Course Vital Signs 09/14/21 23:25 Temperature 99.3 F Pulse Rate 107 H Respiratory 14 Rate Blood Pressure 120/72 [Right] O2 Sat by Pulse 97 Oximetry ED Medical Decision Making - Medical Decision Making 26-year-old black female with no past medical history presents to the emergency department for evaluation of pain to the right flank area for the past 3 days. She states that pain started after she [place]iked [place] a [place]. She states that she has never hiked that far before and pain has been persistent since then but she has not taken any medication for it. She denies abdominal pain, nausea, vomiting, chest pain, cough, fever, dysuria, or changes in appetite. She states pain is worse when she moves around. No gross abnormalities noted on exam, and patient denied any pain on initial assessment. She states that pain only happens when she moves around. Patient be treated with a one-time dose of Toradol in the emergency department for musculoskeletal pain and discharged home and advised to use Tylenol and ibuprofen as needed for pain. She is advised to follow-up with her primary care provider if worsening symptoms and return to the emergency department for any concerning symptoms. She verbalized understanding of and agreement with plan of care. Critical care attestation.: If time is entered above; I have spent that time in minutes in the direct care of this critically ill patient, excluding procedure time. ED Disposition Clinical Impression: Muscular abdominal pain in right flank Disposition: 01 HOME / SELF CARE / HOMELESS Is pt being admited?: No Does the pt Need Aspirin: No Condition: Stable Instructions: Musculoskeletal Pain, Abdominal Pain (ED) Additional Instructions: Use Tylenol or ibuprofen as needed for pain. Drink plenty of noncaffeinated fluids. Follow-up with emergency department if no improvement or worsening symptoms. Referrals: MARILYN SALAS MD [Primary Care Provider] - 3-5 Days Forms: Work/School Release Form(ED) Time of Disposition: 09:43
== END 2021-09-15 10:35 | disposition home or self-care (01) ==
LOC: ED 22:40
DX: R10.31 Right lower quadrant pain (principal)
CPT/HCPCS: 99282